=== PATIENT | female | born 2005 | race Caucasian/White ===

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

== ENCOUNTER → 2025-02-01 | Outpatient (REF) | payer OTHER ==
[2025-02-01 17:52] LABS: URINE PREG TEST NEGATIVE (NEGATIVE)
== END ==
LOC: M LAB REF 16:00
PROVIDERS: ATTEND Nurse Practitioner Family
DX: E06.3 Autoimmune thyroiditis (principal)

== ENCOUNTER → 2025-03-09 | Outpatient (CLI) | payer OTHER ==
[~2025-03-09] MED LIST: LEXA1TAB PO; METH-1387 PO
== END ==
LOC: M ONCR 09:08
PROVIDERS: ATTEND General Practice
DX: E05.00 Thyrotoxicosis with diffuse goiter without thyrotoxic crisis or storm (principal); Z79.899 Other long term (current) drug therapy

== ENCOUNTER → 2025-04-07 | Outpatient (CLI) | payer OTHER | LOC: M LAB 13:09 | PROVIDERS: ATTEND General Practice | DX: Z53.9 Procedure and treatment not carried out, unspecified reason (principal) ==

== ENCOUNTER → 2025-04-07 | Outpatient (CLI) | payer OTHER ==
[2025-04-07 13:58] LABS: HCG, SERUM QUALITATIVE NEGATIVE (NEGATIVE)
== END ==
LOC: M RAD 12:37
PROVIDERS: ATTEND General Practice
DX: E05.00 Thyrotoxicosis with diffuse goiter without thyrotoxic crisis or storm (principal)

== ENCOUNTER → 2025-04-07 | Outpatient (CLI) | payer OTHER ==
[~2025-04-07] MED LIST changes: +CHOL4POW26 PO; +CHOL4PW PO; +METH4PACK; +METH4PACK PO; +ONDA-83 PO; +PRED20TA PO; +PRED50TA57 PO; +PROP40TA62 PO; +XANA0.25 PO
== END ==
LOC: M ONCR 14:46
PROVIDERS: ATTEND General Practice
DX: E05.00 Thyrotoxicosis with diffuse goiter without thyrotoxic crisis or storm (principal)

== ENCOUNTER 2025-04-17 12:06 | Emergency (ER) | payer OTHER ==
[~2025-04-17] VITALS: Ht 160 cm; Wt 74.4 kg
[~2025-04-17 12:06] MED LIST changes: -CHOL4POW26 PO; -CHOL4PW PO; -METH4PACK; -METH4PACK PO; -ONDA-83 PO; -PRED20TA PO; -PRED50TA57 PO; -PROP40TA62 PO; -XANA0.25 PO
[2025-04-17] MEDS ORDERED: ONDA-83 PO (12:40)
[2025-04-17] MEDS: NS (Normal Saline) 0.9% 1,000 ML IV ONE (16:33)
[2025-04-17] MEDS: IBUPROFEN 600 MG TAB PO ONE (16:33)
[2025-04-17 16:42] LABS: BASO # 0.0 10^3/uL (0.0-0.2); BASO % 0.5 % (0.0-1.0); EOS # 0.2 10^3/uL (0.0-0.5); EOS % 3.7 % (0.0-3.0); LYMPH # 0.5 10^3/uL (1.5-5.0); LYMPH % 7.9 % (24.0-44.0); MONO # 0.8 10^3/uL (0.0-0.8); MONO % 13.4 % (2.0-8.0); NEUTROPHILS # 4.4 10^3/uL (1.5-8.5); NEUTROPHILS % 74.0 % (36.0-66.0); PLATELET COUNT, AUTOMATED 210 10^3/uL (150-450)
[2025-04-17 17:06] LABS: CK-MB VALUE MASS < 1.0 NG/ML (<3.6)
[2025-04-17 17:10] LABS: ALT/SGPT 18 U/L (7.0-40); AST/SGOT 34 U/L (<34); CALCIUM LEVEL 8.8 MG/DL (8.5-10.1); CARBON DIOXIDE LEVEL 24 MMOL/L (20-31); CHLORIDE LEVEL 107 MMOL/L (98-107); CREATININE FOR GFR 0.52 MG/DL (0.55-1.30); GLOMERULAR FILTRATION RATE > 90.0 (>60); MAGNESIUM LEVEL 1.9 MG/DL (1.8-2.4); POTASSIUM SERUM 3.8 MMOL/L (3.5-5.1); SODIUM LEVEL 143 MMOL/L (136-145)
[2025-04-17 17:11] LABS: FREE T4 4.76 NG/DL (0.83-1.43)
[2025-04-17 17:52] LABS: C REACTIVE PROTEIN QUANTITATIV 10.89 MG/DL (<1.0); CPK CREATINE PHOSPHOKINASE 52 U/L (34-145)
[2025-04-17 18:06] VITALS: BP 129/77; TEMP 99.2; O2SAT 98
[2025-04-17] MEDS ORDERED: PROP40TA62 PO (19:50)
[2025-04-17] MEDS: PROPRANOLOL 20 MG TAB PO ONE (19:55)
== END 2025-04-17 20:02 | disposition left against medical advice (07) ==
LOC: M ED 12:06
DX: R50.9 Fever, unspecified (principal); R42 Dizziness and giddiness; Z53.20 Procedure and treatment not carried out because of patient's decision for unspecified reasons; E05.00 Thyrotoxicosis with diffuse goiter without thyrotoxic crisis or storm; R00.0 Tachycardia, unspecified; Z79.899 Other long term (current) drug therapy

== ENCOUNTER 2025-04-19 09:52 | Observation (INO) | payer OTHER ==
[~2025-04-19] VITALS: Ht 160 cm; Wt 72.6 kg
[~2025-04-19 09:52] MED LIST changes: +ONDA-83 PO; +PROP40TA62 PO
[2025-04-19 10:44] LABS: BASO # 0.0 10^3/uL (0.0-0.2); BASO % 0.6 % (0.0-1.0); EOS # 0.2 10^3/uL (0.0-0.5); EOS % 3.2 % (0.0-3.0); LYMPH # 0.2 10^3/uL (1.5-5.0); LYMPH % 3.3 % (24.0-44.0); MONO # 0.6 10^3/uL (0.0-0.8); MONO % 9.1 % (2.0-8.0); NEUTROPHILS # 5.2 10^3/uL (1.5-8.5); NEUTROPHILS % 83.5 % (36.0-66.0); PLATELET COUNT, AUTOMATED 218 10^3/uL (150-450)
[2025-04-19] MEDS ORDERED: METH-1387 PO (10:56)
[2025-04-19] MEDS ORDERED: ONDA-83 PO (10:56)
[2025-04-19] MEDS ORDERED: PROP40TA62 PO (10:56)
[2025-04-19] MEDS ORDERED: METH4PACK PO (10:58)
[2025-04-19] MEDS ORDERED: HOME MED LIST COMPLETE! XX SCH (11:00)
[2025-04-19 11:11] LABS: ALT/SGPT 17 U/L (7.0-40); AST/SGOT 20 U/L (<34); CALCIUM LEVEL 9.4 MG/DL (8.5-10.1); CARBON DIOXIDE LEVEL 22 MMOL/L (20-31); CHLORIDE LEVEL 103 MMOL/L (98-107); CREATININE FOR GFR 0.45 MG/DL (0.55-1.30); GLOMERULAR FILTRATION RATE > 90.0 (>60); POTASSIUM SERUM 3.4 MMOL/L (3.5-5.1); SODIUM LEVEL 138 MMOL/L (136-145)
[2025-04-19 11:28] LABS: KETONE, URINE AUTO RFX TRACE mg/dL (NEGATIVE); NITRITE, URINE AUTO RFX NEGATIVE (NEGATIVE); RBC, URINE AUTO RFX 1 /HPF (0-3); SQUAM EPITHELIAL CELL UR AURFX 1 /HPF (0-6); WBC, URINE AUTO RFX 3 /HPF (0-3)
[2025-04-19 11:29] LABS: LEUKOCYTE ESTERASE UR AUTO RFX TRACE (NEGATIVE)
[2025-04-19] MEDS: HYDROCORTISONE 100 MG/2 ML VIAL IV ONE (13:05)
[2025-04-19] MEDS: PROPRANOLOL 20 MG TAB PO ONE (13:06)
[2025-04-19 13:17] LABS: C REACTIVE PROTEIN QUANTITATIV 19.55 MG/DL (<1.0)
[2025-04-19] MEDS ORDERED: ONDANSETRON 4MG TAB PO PRN (14:55)
[2025-04-19 15:14] VITALS: BP 118/67; TEMP 97.6; O2SAT 96
[2025-04-19 15:16] LABS: THYROXINE (T4) 28.7 UG/DL (5.5-11.1)
[2025-04-19] MEDS: POTASSIUM CHLORIDE 10MEQ SR TABLET PO ONE (15:41)
[2025-04-19] MEDS: ENOXAPARIN 40 MG/0.4 ML SYRINGE (J1650 PER 10MG) SC SCH (15:43)
[2025-04-19 16:54] LABS: MAGNESIUM LEVEL 2.0 MG/DL (1.8-2.4)
[2025-04-19 17:00] LABS: FREE T4 > 8.00 NG/DL (0.83-1.43)
[2025-04-19] MEDS: PROPRANOLOL 20 MG TAB PO SCH (17:34)
[2025-04-19 20:21] VITALS: BP 122/72; TEMP 99.4; O2SAT 97
[2025-04-19 20:57] VITALS: TEMP 99.8
[2025-04-19] MEDS: HYDROCORTISONE 100 MG/2 ML VIAL IV SCH (21:07)
[2025-04-19 23:46] VITALS: BP 127/60; TEMP 99.8; O2SAT 96
[2025-04-20 04:12] VITALS: BP 122/71; TEMP 98.7
[2025-04-20 07:03] LABS: PLATELET COUNT, AUTOMATED 233 10^3/uL (150-450)
[2025-04-20 07:32] LABS: ALT/SGPT 16 U/L (7.0-40); AST/SGOT 15 U/L (<34); CALCIUM LEVEL 9.4 MG/DL (8.5-10.1); CARBON DIOXIDE LEVEL 24 MMOL/L (20-31); CHLORIDE LEVEL 106 MMOL/L (98-107); CREATININE FOR GFR 0.40 MG/DL (0.55-1.30); GLOMERULAR FILTRATION RATE > 90.0 (>60); POTASSIUM SERUM 3.7 MMOL/L (3.5-5.1); SODIUM LEVEL 142 MMOL/L (136-145)
[2025-04-20 07:40] VITALS: BP 129/78; TEMP 98.8; O2SAT 98
[2025-04-20 08:55] LABS: FREE T4 > 8.00 NG/DL (0.83-1.43)
[2025-04-20] MEDS: CHOLESTYRAMINE 4 GM PWD PKT PO SCH (09:52)
[2025-04-20] MEDS ORDERED: PROP40TA62 PO (11:48)
[2025-04-20] MEDS ORDERED: METH-1387 PO (11:48)
[2025-04-20] MEDS ORDERED: CHOL4PW PO (11:48)
[2025-04-20 12:00] VITALS: BP 132/65; TEMP 98.9; O2SAT 99
[2025-04-20 13:00] VITALS: BP 111/66
[2025-04-20] MEDS ORDERED: XANA0.25 PO (15:55)
[2025-04-20] MEDS ORDERED: PRED50TA57 PO (16:28)
== END 2025-04-20 17:10 | disposition home or self-care (01) ==
LOC: M ED 09:52 → M ED INP 09:53 → M MS4PR 15:14
PROVIDERS: ADMIT Internal Medicine; ATTEND Internal Medicine
DX: E05.90 Thyrotoxicosis, unspecified without thyrotoxic crisis or storm (principal); E03.9 Hypothyroidism, unspecified; Z79.899 Other long term (current) drug therapy; R11.15 Cyclical vomiting syndrome unrelated to migraine; E87.6 Hypokalemia
CPT/HCPCS: 36415; 71045; 76536; 80048; 80053; 80076; 81001; 83605; 83735; 84145; 84436; 84439; 84443; 84481; 85025; 85027; 86140; 87040; 87086; 87486; 87581; 87633; 87798; 93005; 93041; 94760; 96374; 96376; 99285; J1650; J1720

== ENCOUNTER 2025-04-26 10:15 | Emergency (ER) | payer OTHER ==
[~2025-04-26] VITALS: Ht 160 cm; Wt 69.0 kg
[~2025-04-26 10:15] MED LIST changes: +CHOL4PW PO; +METH4PACK PO; +PRED50TA57 PO; +XANA0.25 PO
[2025-04-26] MEDS ORDERED: METH4PACK (10:41)
[2025-04-26] MEDS ORDERED: METH-1387 PO (12:25)
[2025-04-26] MEDS ORDERED: PRED20TA PO (12:25)
[2025-04-26] MEDS ORDERED: CHOL4POW26 PO (12:25)
[2025-04-26 12:30] VITALS: BP 117/76; TEMP 98.2; O2SAT 96
[2025-04-26] MEDS ORDERED: PROP40TA62 PO (12:33)
== END 2025-04-26 12:48 | disposition home or self-care (01) ==
LOC: M ED 10:15
DX: E05.00 Thyrotoxicosis with diffuse goiter without thyrotoxic crisis or storm (principal)

== ENCOUNTER → 2025-05-01 | Outpatient (CLI) | payer OTHER ==
[~2025-05-01] MED LIST changes: +CHOL4POW26 PO; +METH4PACK; +PRED20TA PO
== END ==
LOC: M RAD 13:51
PROVIDERS: ATTEND Nurse Practitioner Family
DX: E06.3 Autoimmune thyroiditis (principal)

== ENCOUNTER → 2025-05-09 | Outpatient (CLI) | payer OTHER ==
[2025-05-09 14:07] LABS: FREE T4 6.49 NG/DL (0.83-1.43)
== END ==
LOC: M LAB 12:41
PROVIDERS: ATTEND Nurse Practitioner Family
DX: E05.90 Thyrotoxicosis, unspecified without thyrotoxic crisis or storm (principal)